=== PATIENT | female | born 1965 | race Caucasian/White ===

== ENCOUNTER 2025-02-21 23:04 | Emergency (ER) | payer OTHER, SELFPAY ==
--- NOTE | ~2025-02-21 | CT_ITS ---
CLINICAL HISTORY: divertic CT abdomen and pelvis with contrast Comparison: CT - CT ABDOMEN PELVIS W IV CON - 02/22/25 00:55 EDT Findings: The lung bases are clear. Liver is of low-attenuation. Otherwise unremarkable gallbladder and solid organs. No urolithiasis. No bowel obstruction, pneumoperitoneum, or pneumatosis. Appendix is minimally prominent at 7 mm diameter. No periappendiceal fat stranding or inflammatory change identified. Few scattered sigmoid diverticula are present without diverticulitis. Urinary bladder and pelvic structures are within normal limits. The bones are intact. IMPRESSION: Mild hepatic steatosis Otherwise unremarkable CT abdomen and pelvis as above This document has been electronically signed by: Andrew Corea MD, PHD on 02/22/2025 01:45:59
[2025-02-21 23:07] VITALS: BP 123/81; PULSE 84; RESP 20; TEMP 36.3; O2SAT 97; BMI 36.0
[2025-02-21 23:21] LABS: Hematocrit 43.2 % (37.0-47.0); Hemoglobin 15.5 g/dl (12.0-16.0); Imm Gran Abs Auto 0.06 X10*3/uL (0.00-0.03); Imm Gran Pct Auto 0.5 % (0.0-0.4); Lymphocytes Absolute Auto 3.3 X10*3/uL (1.2-4.9); MANUAL DIFF FLAG SCAN; Mean Corpuscular HGB Conc 35.9 g/dl (31.0-35.0); Mean Corpuscular Hemoglobin 29.0 pg (27.0-33.0); Mean Corpuscular Volume 80.9 fL (80.0-98.0); NRBC Abs Auto 0.000 X10*3/uL (0.0-0.012); NRBC Pct Auto 0.0 /100WBC (0.0-0.2); Platelet Count 253 X10*3/uL (160-400); Red Blood Count 5.34 X10*6/uL (4.20-5.50); SCAN SMEAR FLAG 1; White Blood Count 12.6 X10*3/uL (4.8-10.8)
[2025-02-21 23:35] LABS: Alanine Aminotransferase 53 U/L (0-31); Albumin Level 4.7 g/dL (3.5-5.0); Alkaline Phosphatase 82 U/L (39-117); Anion Gap 17 (12-20); Aspartate Amino Transferase 36 U/L (5-31); Blood Urea Nitrogen 13 mg/dL (9-16); Calcium 10.0 mg/dL (8.4-10.2); Carbon Dioxide 19 mmol/L (22-29); Chloride 108 mmol/L (96-108); Creatinine Clr Calc Pharmacy 101.4; Estimated Glomerular Filt Rate > 60; Potassium 3.5 mmol/L (3.3-5.1); Sodium 140 mmol/L (135-145); Total Protein 7.8 g/dL (6.5-8.0)
--- NOTE | 2025-02-22 00:40 | ED.GENADULT ---
HPI - General Adult General Chief complaint: Nausea/Vomiting/Diarrhea Stated complaint: Vomitting, diarrhea Time Seen by Provider: 02/22/25 00:37 Source: patient Limitations: no limitations History of Present Illness ED Provider: Marco A Fletcher PA-C HPI narrative: 59-year-old female presents with nausea vomiting diarrhea for weeks. Patient states she has been having ongoing symptoms that have since escalated over the past day. Associated intractable nausea vomiting and ongoing diarrhea. Patient now has left lower quadrant discomfort. Denies fever. Denies recent travel, use of antibiotics, or hospitalization. No sick contacts with similar symptoms. Related Data Allergies Allergy/AdvReac Type Severity Reaction Status Date / Time amoxicillin Allergy Unknown Verified 02/21/25 23:11 cyclobenzaprine (From Allergy Unknown Verified 02/21/25 23:11 Flexeril) doxycycline Allergy Unknown Verified 02/21/25 23:11 Penicillins Allergy Unknown Verified 02/21/25 23:11 Sulfa (Sulfonamide Allergy Unknown Verified 02/21/25 23:11 Antibiotics) Review of Systems Review of Systems: Yes all other systems are reviewed and are negative Constitutional: Constitutional: Denies fatigue and Denies fever(s) Cardiovascular: Cardiovascular: Denies chest pain and Denies dyspnea Respiratory: Respiratory: Denies dyspnea Gastrointestinal: Gastrointestinal: Reports abdominal pain, Reports diarrhea, Reports nausea and Reports vomiting Endocrine: Endocrine: Denies fatigue PMFSH Past Medical History Attestation statement: The following information was validated with the patient. Physical Exam ED Vital Signs: Vital Signs - 24 hr 02/21/25 23:07 Temperature 97.4 F Pulse Rate 84 Respiratory Rate 20 Blood Pressure 123/81 Pulse Oximetry 97 Oxygen Delivery Method Room Air BMI result Body Mass Index 36.0 Medications Administered Discontinued Medications Generic Name Dose Route Start Last Admin Trade Name Freq PRN Reason Stop Dose Admin Sodium Chloride 1,000 mls @ 999 mls/hr 02/22/25 00:45 02/22/25 00:54 Ns IV 02/22/25 01:45 999 mls/hr .Q1H1M JOSH Administration Iohexol 85 ml 02/22/25 01:04 02/22/25 01:04 Iohexol 350 Mg/Ml 100 Ml Infus..Btl IV 02/22/25 01:05 85 ml ONCE ONE Administration Morphine Sulfate 4 mg 02/22/25 00:39 02/22/25 00:55 Morphine Sulfate 4 Mg/Ml Cartridge IVPUSH 02/22/25 00:40 4 mg ONCE ONE Administration Protocol Ondansetron HCl 4 mg 02/22/25 00:39 02/22/25 00:55 Ondansetron Hcl 4 Mg/2 Ml Vial IVPUSH 02/22/25 00:40 4 mg ONCE ONE Administration Medical Decision Making Medical Decision Making [facility] Narrative: 59-year-old female presents with nausea vomiting diarrhea for weeks. Patient states she has been having ongoing symptoms that have since escalated over the past day. Associated intractable nausea vomiting and ongoing diarrhea. Patient now has left lower quadrant discomfort. Denies fever. Denies recent travel, use of antibiotics, or hospitalization. No sick contacts with similar symptoms. Problem: History: Per patient I have considered the following differential diagnoses: Diverticulitis, C diff, traveler's diarrhea, viral gastroenteritis Plan: Screening labs already obtained from triage, given the patient has pain, I am considering diverticulitis as most likely cause. We will be ordering a CT scan of the abdomen and pelvis. Giving morphine Zofran and IV fluid. To note she has no risk factors for traveler's diarrhea or C diff. She has no sick contacts with similar symptoms, viral gastroenteritis less likely, and furthermore, she has had symptoms for weeks. I have independently reviewed the following tests: Labs: Slight leukocytosis, not anemic, no electrolyte abnormality noted CT abdomen and pelvis:IMPRESSION: Mild hepatic steatosis Otherwise unremarkable CT abdomen and pelvis as above After further discussion with the patient, she is on Mounjaro, this is the likely cause of her symptoms. Lab Data 02/21/25 23:15 02/21/25 23:15 Labs: Lab Results 02/21/25 Range/Units 23:15 WBC 12.6 H (4.8-10.8) X10*3/uL RBC 5.34 (4.20-5.50) X10*6/uL Hgb 15.5 (12.0-16.0) g/dl Hct 43.2 (37.0-47.0) % MCV 80.9 (80.0-98.0) fL MCH 29.0 (27.0-33.0) pg MCHC 35.9 H (31.0-35.0) g/dl RDW 12.8 (11.0-16.0) % Plt Count 253 (160-400) X10*3/uL MPV 10.1 (9.4-12.3) fL Immature Gran % (Auto) 0.5 H (0.0-0.4) % Neut % (Auto) 63.0 (45-73) % Lymph % (Auto) 25.9 (20-40) % [place] % (Auto) 6.0 (2-11) % Eos % (Auto) 4.4 H (0-4) % Baso % (Auto) 0.2 (0-2) % Lymph # (Auto) 3.3 (1.2-4.9) X10*3/uL [place] # (Auto) 0.8 (0.1-1.2) X10*3/uL Eos # (Auto) 0.6 H (0.0-0.4) X10*3/uL Baso # (Auto) 0.0 (0.0-0.2) X10*3/uL Abs Immat Gran (auto) 0.06 H (0.00-0.03) X10*3/uL Absolute Neuts (auto) 8.0 (2.0-8.3) x10*3/uL Absolute Nucleated RBC 0.000 (0.0-0.012) X10*3/uL Nucleated RBC % (auto) 0.0 (0.0-0.2) /100WBC Smear Tech's Comments VERIFIED Sodium 140 (135-145) mmol/L Potassium 3.5 (3.3-5.1) mmol/L Chloride 108 (96-108) mmol/L Carbon Dioxide 19 L (22-29) mmol/L Anion Gap 17 (12-20) BUN 13 (9-16) mg/dL Creatinine 0.66 (0.5-1.4) mg/dL Estim Creat Clear Calc 101.4 Estimated GFR > 60 Random Glucose 166 H (60-115) mg/dL Calcium 10.0 (8.4-10.2) mg/dL Total Bilirubin 0.4 (0.0-1.0) mg/dL AST 36 H (5-31) U/L ALT 53 H (0-31) U/L Alkaline Phosphatase 82 (39-117) U/L Total Protein 7.8 (6.5-8.0) g/dL Albumin 4.7 (3.5-5.0) g/dL Discharge Plan Discharge Clinical Impression: Vomiting and diarrhea Patient Disposition: Home, Self-Care Additional Instructions: Patient was discharged during down time and a down time requisition form Discharge Date/Time: 02/22/25 03:25 Print Language: Peruvian
[2025-02-22] MEDS: iohexoL 350 MG/ML 100 ML INFUS..BTL 85 ML IV (01:04)
== END 2025-02-22 03:25 | disposition home or self-care (01) ==
PROVIDERS: Emergency Provider Emergency Medicine Emergency Medical Services
DX: R11.2 Nausea with vomiting, unspecified (principal); R19.7 Diarrhea, unspecified; R10.32 Left lower quadrant pain
CPT/HCPCS: 36415; 74177; 80053; 85025; 96361; 96374; 96375; 99284; J2270; J2405; Q9967

== ENCOUNTER → 2025-02-22 00:39 | Outpatient (BNV) | payer OTHER, SELFPAY | PROVIDERS: Emergency Provider Emergency Medicine Emergency Medical Services; Visit Provider General Practice | DX: K57.90 Diverticulosis of intestine, part unspecified, without perforation or abscess without bleeding (principal) | CPT/HCPCS: 74177 ==